=== PATIENT | male | born 1955 | race Caucasian/White ===

== ENCOUNTER 2017-08-16 05:58 | Inpatient (IN) ==
[2017-08-16] MEDS ORDERED: Dexamethasone Inj 20 MG/5 ML Vial IV.PUSH SCH (06:17)
[2017-08-16] MEDS ORDERED: Sodium Chlor 0.9% Inj 73.07 ML, Ropivacaine 0.5% PF Inj 24.63 ML, Ketorolac Inj 30 MG, ... P-ARTICULR SCH ×5 (06:30)
[2017-08-16] MEDS ORDERED: Chlorhexidine 4% Topical 120 APPLIC/120 ML Bottle TOPICAL SCH (06:30)
[2017-08-16] MEDS ORDERED: Metoprolol Tartrate 25 MG Tablet PO SCH (06:30)
[2017-08-16] MEDS ORDERED: Chlorhexidine Gluconate 2% 1 Pack (2 Cloths) TOPICAL SCH (06:30)
[2017-08-16] MEDS ORDERED: Sodium Chlor 0.9% Inj 500 ML IV.SIG SCH (07:00)
[2017-08-16] MEDS ORDERED: Vancomycin Inj 1 GM/200 ML PIGGYBACK IV.SIG SCH (07:00)
[2017-08-16] MEDS ORDERED: TRANEXAMIC ACID IV.SIG SCH (07:00)
[2017-08-16] MEDS ORDERED: ceFAZolin 2 GM Premix Inj 2 GM/50 ML PIGGYBACK IV.SIG SCH (07:00)
[2017-08-16] MEDS ORDERED: SODIUM CHLOR 0.9% IV.SIG SCH (07:00)
[2017-08-16] MEDS ORDERED: Post-op Orders (for Pharmacy) OTHER STA (07:05)
[2017-08-16] MEDS ORDERED: Bisacodyl 10 MG Supp RECTAL PRN (07:05)
[2017-08-16] MEDS ORDERED: Zolpidem Tartrate 5 MG Tablet PO PRN (07:05)
[2017-08-16] MEDS: Bupivacaine Liposomal PF 1.3% Inj 20 ML Vial ONE (09:06)
[2017-08-16] MEDS ORDERED: Tranexamic Acid Inj 3,000 MG in Sodium Chlor 0.9% Inj 100 ML IV.SIG SCH (09:21)
[2017-08-16] MEDS ORDERED: fentaNYL Citrate Inj 100 MCG/2 ML Ampul ONE (10:16)
[2017-08-16] MEDS ORDERED: *Meperidine Inj 25 MG/ML Vial PERIprocedural Use ONLY ONE (10:16)
--- NOTE | 2017-08-16 10:23 | MP ---
cc: Albert Pedroza MD DATE OF OPERATION: 08/16/2017 PREOPERATIVE DIAGNOSIS: Left knee osteoarthritis. POSTOPERATIVE DIAGNOSIS: Left knee osteoarthritis. PROCEDURE: Left total knee arthroplasty. SURGEON: Albert Pedroza MD HAND STRIPPER: YOLANDA Zamorano ANESTHESIA: General with an adductor canal block. ESTIMATED BLOOD LOSS: 50 mL. TOURNIQUET TIME: 23 minutes at 250 mmHg. COMPLICATIONS: None. IMPLANTS USED: DePuy Attune size 6 posterior stabilized femoral component, size 7 rotating platform tibial baseplate, size 6 mm polyethylene tibial insert, 38 patella. JUSTIFICATION: This patient is a 61-year-old male with a history of severe osteoarthritis involving the left knee. He has severe disabling pain with standing, walking, ambulation and weight-bearing activities, severe pain at rest. It does interfere with activities of daily living. He has failed greater than 3 months of nonoperative conservative treatment to include medication therapy, injections, ambulatory assistive aids, home exercise program, and activity modification, patient not overweight. X-rays of the left knee reveals severe osteoarthritis with [id number] joint space narrowing, subchondral sclerosis, subchondral cyst, osteophyte formation, varus deformity with subluxation. The patient was counseled as to the risks, benefits and alternatives to a total knee arthroplasty. The risks were discussed which include, but are not limited to anesthesia, bleeding, infection, damage to nerves and blood vessels, pain, stiffness, failure of hardware, blood clots, pulmonary embolism, and even . The patient's pain is severe. He favored the benefits over the risks. He did wish to proceed with surgery. PROCEDURE IN DETAIL: Written consent was obtained. The patient identified by name, taken to the operating room, placed supine on the operating room table. General anesthesia was administered, as well as 2 grams of IV Ancef and 1 gram IV vancomycin. A well-padded tourniquet was placed on the left leg. The left lower extremity was prepped and draped using isopropyl alcohol, Hibiclens solution and ChloraPrep solution. After a timeout was performed, an Esmarch bandage was used to exsanguinate the left lower extremity and tourniquet inflated to 250 mmHg. A longitudinal incision was made over the anterior aspect of the left knee. A medial parapatellar arthrotomy was performed. The patella was everted. A patellar resection guide was used to resect 9 mm of the patella. A size 38 mm guide was placed. Three drill holes were placed and a 38 mm trial fit well. Attention turned to the femur where an intramedullary guide was placed and the distal femoral guide was set to remove 10 mm of distal femur, 5 degrees off the anatomic valgus axis alignment. An oscillating saw was used to perform the distal femoral cut. Attention was turned to the tibia where an extramedullary tibial guide was set to remove 5 mm off the lowest portion of the medial tibial plateau. The tibial guide was pinned in place and a tibial cut was performed. A 5 mm spacer block showed full extension. Attention was turned back to the tibia where the AP sizer block measured a size 6. The anterior reference 3-degree external rotation guide was used to pin a size [address] The anterior, posterior and chamfer cuts were performed. A size 6 PCL box cut was pinned in place the PCL was box cut with an oscillating saw. The medial and lateral meniscus remnants were removed, as well as bone and soft tissue debris from the posterior portion of the knee. A size 7 tibia baseplate was pinned in place and the tibia was drilled and punched. Trial components were evaluated and final components cemented in place. With the current components, the leg could achieve full extension to 0 degrees, flexion to 140 with no evidence of tibial liftoff. Varus valgus balance appeared appropriate symmetric and the patella was noted to track centrally. The tourniquet was deflated. Bovie cautery was used for hemostasis. The surgical wound was thoroughly irrigated with sterile pulse lavage antibiotic impregnated solution. The arthrotomy incision was closed with #1 Vicryl suture, subcutaneous layer 2-0 Vicryl suture and skin was closed with Dermabond. Sterile dressing was applied. The patient tolerated the procedure well with no intraoperative complications noted. Sarbjit Isaac PA-C was present during the entire procedure to include patient positioning and the procedure itself. The medical necessity of a physician psychological assistant was indicated in this case due to the complexity of the procedure. He assisted with appropriate manipulation of the bone and also implantation of the prosthetic replacement. MD HEATHER Peterson/JULES , 09:57 AM , 10:21 AM
--- NOTE | 2017-08-16 10:35 | P.CONIM ---
<Elli Hernandez - Last Filed: 08/16/17 11:32> History of Present Illness Consult date: 08/16/17 Requesting Physician: Albert Pedroza Reason for Consult: Postoperative medical management Primary Care Provider: Shireen Ballard MD Family Provider: Shireen Ballard MD History of Present Illness: This a 61-year-old male patient with past medical history which includes hypertension, CAD status post stent to the LAD and left circumflex 2006, Bolivar 's esophagitis, sleep apnea and does wear CPAP at home and OA of the left knee. Patient presented to [facility] today 08/16/2017 for left total knee arthroplasty with Dr. Pedroza. We have been consulted for postoperative medical management. Patient seen and postoperative recovery complains of left knee pain. Patient denies shortness of breath or chest pain nausea vomiting diarrhea constipation fevers or chills. PMH: Hypertension CAD status post stent to the LAD and left circumflex 2006 Bolivar's esophagitis Osteoarthritis left knee PSxH: Cardiac catheterization with stent placed to the LAD and left circumflex 2006 Tonsillectomy Uvuloplasty FMH: Anxiety Alcoholism Social history: Drinks approximately 3-4 beers per day Denies tobacco use Denies illicit drug use Review of Systems All other systems reviewed negative except as stated in HPI [facility] - History History Provided By: Patient, Significant Other - Medical History Medical History: Medical History (Last Updated 08/06/17 @ 16:01 by Chandni Jauregui RN) Arthritis Back pain Hypertension Kidney stones Obstructive sleep apnea on CPAP - Surgical History Surgical History: Surgical History (Last Updated 08/06/17 @ 16:01 by Chandni Jauregui RN) H/O lithotripsy H/O sinus surgery Hx of cardiac cath Stented coronary artery - Tobacco History Second Hand Smoke Exposure: No Tobacco Use In Past 30 Days: No Smoking Status: Former smoker Tobacco Type: Cigarettes - Alcohol History How Often Do You Have a Drink Containing Alcohol: 4 or more times a week - Substance Use History Substance History: No History of Abuse Medications and Allergies Allergies Allergy/AdvReac Type Severity Reaction Status Date / Time No Known Allergies Allergy Unverified 08/06/17 16:08 Home Medications Medication Instructions Recorded Confirmed Type aspirin [Aspir-81] 81 mg PO DAILY 08/06/17 08/06/17 History clopidogrel [Plavix] 75 mg PO DAILY 08/06/17 08/06/17 History fenofibrate 1,145 mg PO DAILY 08/06/17 08/06/17 History fosinopril 20 mg PO BID 08/06/17 08/16/17 History ab-[id number]-[id number] I-[id number] 1 cap PO DAILY 08/06/17 08/06/17 History [Daily Multivitamin] omega-3 fatty acids-fish oil [Fish 1 cap PO DAILY 08/06/17 08/06/17 History Oil] pantoprazole [Protonix] 40 mg PO DAILY 08/06/17 08/16/17 History prazosin 4 mg PO BID 08/06/17 08/16/17 History rosuvastatin [Crestor] 40 mg PO HS 08/06/17 08/06/17 History verapamil 180 mg PO QAM 08/06/17 08/16/17 History hydrochlorothiazide 12.5 mg PO DAILY 08/10/17 08/16/17 History Active Medications: Active Medications Hydrocodone Bitart/Acetaminophen ([place] 7.5/325) 1 tab PO Q4H PRN PRN Reason: PAIN LESS THAN 5 ON SCALE Hydrocodone Bitart/Acetaminophen ([place] 7.5/325) 2 tab PO Q6H PRN PRN Reason: PAIN SCALE 5 TO 10 Al Hydroxide/Mg Hydroxide (Milk Of Salma Amaral) 30 ml PO BID PRN PRN Reason: Mild Constipation Aspirin (Aspirin Chew) 81 mg PO BID [facility] Bisacodyl (Dulcolax Supp) 10 mg RECTAL DAILY PRN PRN Reason: SEVERE CONSITIPATION Chlorhexidine Gluconate (Hibiclens 4% Topical) 1 applicatio TOPICAL ONCE [facility] Stop: 08/20/17 06:29 Chlorhexidine Gluconate (Chlorhexidine 2% Cloth) 3 pack [facility] Stop: 08/19/17 06:16 Last Admin: 08/16/17 08:36 Dose: 3 pack Sodium Chloride 73.07 ml/Ropivacaine 24.63 ml/Ketorolac Tromethamine 30 mg/ Epinephrine HCl 0.5 mg/cloNIDine PF Inj 80 mcg 0 ml P-ARTICULR ONCE [facility] Stop: 08/16/17 15:00 Dexamethasone Sodium Phosphate (Decadron Inj) 10 mg IV.PUSH UNSCH X1 [facility] Stop: 08/16/17 22:00 Last Admin: 08/16/17 08:37 Dose: 10 mg Diphenhydramine HCl (Benadryl) 25 mg PO Q6H PRN PRN Reason: ITCHING Hydromorphone HCl (Dilaudid Pf Inj) 1 mg IV.PUSH Q3H PRN PRN Reason: BREAKTHROUGH PAIN Lactated Ringer's (Lr 1000 Ml Inj) 1,000 mls @ 30 mls/hr IV.SIG .Q24H [facility] Stop: 08/19/17 06:16 Last Admin: 08/16/17 08:32 Dose: 30 mls/hr Sodium Chloride (Ns Inj) 500 mls @ 30 mls/hr IV.SIG .Q10H [facility] Stop: 08/19/17 06:16 Tranexamic Acid 3,000 mg/ (Sodium Chloride) 130 mls @ 200 mls/hr IV.SIG ONCE [facility] Stop: 08/16/17 15:00 Vancomycin/Sodium Chloride (Vancomycin Inj) 1 gm in 200 mls @ 200 mls/hr IV.SIG [facility] [employer] [facility] Stop: 08/20/17 06:59 Last Admin: 08/16/17 08:34 Dose: 200 mls/hr Cefazolin Sodium/Dextrose (Ancef 2 Gm Premix Inj) 2 gm in 50 mls @ 100 mls/hr IV.SIG [facility] [employer] [facility] Stop: 08/20/17 06:59 Tranexamic Acid 1,215 mg/ (Sodium Chloride) 112.15 mls @ 200 mls/hr IV.SIG ONCE [facility] Stop: 08/16/17 15:00 Cefazolin Sodium/Dextrose (Ancef 2 Gm Premix Inj) 2 gm in 50 mls @ 100 mls/hr IV.SIG Q6H [facility] Stop: 08/16/17 20:29 Lactated Ringer's (Lr 1000 Ml Inj) 1,000 mls @ 80 mls/hr IV.CONT .[id number] [facility] Lactulose (Lactulose Liq) 30 ml PO DAILY PRN PRN Reason: SEVERE CONSITIPATION Metoprolol Tartrate (Lopressor) 25 mg PO [facility] Stop: 08/19/17 06:16 Miscellaneous Information (Misc Post-Op Orders (For Pharmacy)) 0 each OTHER STAT STA Stop: 08/16/17 07:06 Multivitamins/Minerals (Theragran-M) 1 tab PO BID [facility] Stop: 10/15/17 08:59 Non-Formulary Medication (Fosinopril [Fosinopril]) 20 mg PO BID [facility] Non-Formulary Medication (Hydrochlorothiazide [Hydrochlorothiazide]) 12.5 mg PO DAILY [facility] Non-Formulary Medication (Fenofibrate [Fenofibrate]) 1,145 mg PO DAILY [facility] Non-Formulary Medication (Rosuvastatin) 40 mg PO HS [facility] Ondansetron HCl (Zofran Inj) 4 mg IV.PUSH Q6H PRN PRN Reason: NAUSEA OR VOMITING Pantoprazole Sodium (Protonix) 40 mg PO DAILY [facility] Povidone Iodine (Betadine 5% Antisepsis Kit) 1 applicatio EACH [facility] Stop: 08/19/17 06:16 Povidone Iodine (Betadine 7.5% Scrub) 1 applicatio TOPICAL ONCE [facility] Stop: 08/20/17 06:59 Last Admin: 08/16/17 07:00 Dose: 1 applicatio Prazosin HCl (Minipress) 4 mg PO BID [facility] Senna/Docusate Sodium (Eloisa-Colace) 1 tab PO BID [facility] Sennosides (Senokot) 17.2 mg PO BID PRN PRN Reason: Moderate Constipation Sodium Chloride (Ns Flush) 2 ml IV.FLUSH PRN PRN PRN Reason: FLUSH AFTER USING IV ACCESS Sodium Chloride (Ns Flush) 2 ml IV.FLUSH BID [facility] Verapamil HCl (Isoptin Sr) 180 mg PO QAM [facility] Exam Vital signs: Vital Signs 08/16/17 07:01 08/16/17 07:36 Temperature 98.7 F Pulse Rate 80 66 Respiratory Rate 20 Blood Pressure 165/85 H Pulse Oximetry 100 Intake & Output 08/15/17 08/16/17 08/16/17 18:59 06:59 18:59 Weight 80.9 kg Other: Weight On Admission 80.9 kg Narrative: GENERAL: This is a well-nourished, well-developed patient, in no apparent distress. SKIN: Postoperative dressing and immobility splint left knee dry and intact CARDIOVASCULAR: Regular rate and rhythm RESPIRATORY: Clear to auscultation. Breath sounds equal bilaterally. GASTROINTESTINAL: Abdomen soft, non-tender, nondistended. MUSCULOSKELETAL: Extremities without clubbing, cyanosis, or edema. NEURO: Alert & Oriented x4 to person, place, time, situation. Moves all ext x4 Results - Labs Labs: Laboratory Results - last 24 hr 08/16/17 06:35 Blood Type O Positive Blood Type Recheck Required Antibody Screen Negative Assessment and Plan - Assessment (1) Osteoarthritis of left knee Code(s): M17.12 - Unilateral primary osteoarthritis, left knee Status: Acute Plan: This a 61-year-old male patient with past medical history which includes hypertension, CAD status post stent to the LAD and left circumflex 2006, Bolivar 's esophagitis, sleep apnea and does wear CPAP at home and OA of the left knee. Patient presented to [facility] today 08/16/2017 for left total knee arthroplasty with Dr. Pedroza. We have been consulted for postoperative medical management. Patient seen and postoperative recovery complains of left knee pain. Patient denies shortness of breath or chest pain nausea vomiting diarrhea constipation fevers or chills. Osteoarthritis left knee Patient status post left total knee arthroplasty with Dr. Pedroza 08/16/2017 IV and p.o. pain medication as needed Hypertension Continue patient's verapamil 180 mg daily, fosinopril 20 mg p.o. daily, Minipress 2 mg CAD status post stent to the LAD and left circumflex 2006 Recommend continuing patient's home Plavix and aspirin -once okay with orthopedic surgery Also continue patient's home Crestor 40 mg daily and TriCor 145 mg daily Bolivar's esophagitis Continue patient's home Protonix 40 mg daily DVT prophylaxis per orthopedic surgery <Tom Fonseca - Last Filed: 08/16/17 12:32> History of Present Illness Primary Care Provider: Shireen Ballard MD Family Provider: Shireen Ballard MD [facility] - Medical History Medical History: Medical History (Last Updated 08/06/17 @ 16:01 by Chandni Jauregui, SU) Arthritis Back pain Hypertension Kidney stones Obstructive sleep apnea on CPAP - Surgical History Surgical History: Surgical History (Last Updated 08/06/17 @ 16:01 by Chandni Jauregui RN) H/O lithotripsy H/O sinus surgery Hx of cardiac cath Stented coronary artery Medications and Allergies Active Medications: Active Medications Hydrocodone Bitart/Acetaminophen ([place] 7.5/325) 1 tab PO Q4H PRN PRN Reason: PAIN LESS THAN 5 ON SCALE Hydrocodone Bitart/Acetaminophen ([place] 7.5/325) 2 tab PO Q6H PRN PRN Reason: PAIN SCALE 5 TO 10 Al Hydroxide/Mg Hydroxide (Milk Of Salma Amaral) 30 ml PO BID PRN PRN Reason: Mild Constipation Aspirin (Aspirin Chew) 81 mg PO BID [facility] Atorvastatin Calcium (Lipitor) 80 mg PO HS [facility] Bisacodyl (Dulcolax Supp) 10 mg RECTAL DAILY PRN PRN Reason: SEVERE CONSITIPATION Chlorhexidine Gluconate (Hibiclens 4% Topical) 1 applicatio TOPICAL ONCE [facility] Stop: 08/20/17 06:29 Chlorhexidine Gluconate (Chlorhexidine 2% Cloth) 3 pack [facility] Stop: 08/19/17 06:16 Last Admin: 08/16/17 08:36 Dose: 3 pack Sodium Chloride 73.07 ml/Ropivacaine 24.63 ml/Ketorolac Tromethamine 30 mg/ Epinephrine HCl 0.5 mg/cloNIDine PF Inj 80 mcg 0 ml P-ARTICULR ONCE [facility] Stop: 08/16/17 15:00 Last Admin: 08/16/17 09:06 Dose: 73.07 bag Dexamethasone Sodium Phosphate (Decadron Inj) 10 mg IV.PUSH UNSCH X1 [facility] Stop: 08/16/17 22:00 Last Admin: 08/16/17 08:37 Dose: 10 mg Diphenhydramine HCl (Benadryl) 25 mg PO Q6H PRN PRN Reason: ITCHING Fenofibrate (Tricor) 145 mg PO DAILY [facility] Hydrochlorothiazide (Microzide) 12.5 mg PO DAILY [facility] Hydromorphone HCl (Dilaudid Pf Inj) 1 mg IV.PUSH Q3H PRN PRN Reason: BREAKTHROUGH PAIN Lactated Ringer's (Lr 1000 Ml Inj) 1,000 mls @ 30 mls/hr IV.SIG .Q24H [facility] Stop: 08/19/17 06:16 Last Admin: 08/16/17 08:32 Dose: 30 mls/hr Sodium Chloride (Ns Inj) 500 mls @ 30 mls/hr IV.SIG .Q10H [facility] Stop: 08/19/17 06:16 Tranexamic Acid 3,000 mg/ (Sodium Chloride) 130 mls @ 200 mls/hr IV.SIG ONCE [facility] Stop: 08/16/17 15:00 Last Admin: 08/16/17 09:06 Dose: 200 mls/hr Vancomycin/Sodium Chloride (Vancomycin Inj) 1 gm in 200 mls @ 200 mls/hr IV.SIG [facility] Stop: 08/20/17 06:59 Last Admin: 08/16/17 08:34 Dose: 200 mls/hr Cefazolin Sodium/Dextrose (Ancef 2 Gm Premix Inj) 2 gm in 50 mls @ 100 mls/hr IV.SIG [facility] Stop: 08/20/17 06:59 Tranexamic Acid 1,215 mg/ (Sodium Chloride) 112.15 mls @ 200 mls/hr IV.SIG ONCE [facility] Stop: 08/16/17 15:00 Cefazolin Sodium/Dextrose (Ancef 2 Gm Premix Inj) 2 gm in 50 mls @ 100 mls/hr IV.SIG Q6H [facility] Stop: 08/17/17 02:29 Lactated Ringer's (Lr 1000 Ml Inj) 1,000 mls @ 80 mls/hr IV.CONT .[id number] [facility] Last Admin: 08/16/17 10:57 Dose: 80 mls/hr Lactulose (Lactulose Liq) 30 ml PO DAILY PRN PRN Reason: SEVERE CONSITIPATION Lisinopril (Prinivil) 20 mg PO BID [facility] Metoprolol Tartrate (Lopressor) 25 mg PO [facility] Stop: 08/19/17 06:16 Multivitamins/Minerals (Theragran-M) 1 tab PO BID [facility] Stop: 10/15/17 08:59 Ondansetron HCl (Zofran Odt) 4 mg PO Q6H PRN PRN Reason: NAUSEA OR VOMITING Pantoprazole Sodium (Protonix) 40 mg PO DAILY [facility] Povidone Iodine (Betadine 5% Antisepsis Kit) 1 applicatio EACH [facility] Stop: 08/19/17 06:16 Povidone Iodine (Betadine 7.5% Scrub) 1 applicatio TOPICAL ONCE [facility] Stop: 08/20/17 06:59 Last Admin: 08/16/17 07:00 Dose: 1 applicatio Prazosin HCl (Minipress) 4 mg PO BID [facility] Senna/Docusate Sodium (Eloisa-Colace) 1 tab PO BID [facility] Sennosides (Senokot) 17.2 mg PO BID PRN PRN Reason: Moderate Constipation Sodium Chloride (Ns Flush) 2 ml IV.FLUSH PRN PRN PRN Reason: FLUSH AFTER USING IV ACCESS Sodium Chloride (Ns Flush) 2 ml IV.FLUSH BID [facility] Verapamil HCl (Isoptin Sr) 180 mg PO DAILY [facility] Exam Vital signs: Vital Signs 08/16/17 07:01 08/16/17 07:36 08/16/17 10:12 Temperature 98.7 F 97.6 F Pulse Rate 80 66 94 H Respiratory Rate 20 18 Blood Pressure 165/85 H 121/78 Pulse Oximetry 100 100 Intake & Output 08/15/17 08/16/17 08/16/17 18:59 06:59 18:59 Intake Total 1500 / 1500 Output Total 100 / 100 Balance 1400 / 1400 Weight 80.9 kg Intake: Anesthesia Amount 1500 / 1500 Output: Estimated Blood Loss 100 / 100 Other: Weight On Admission 80.9 kg Results - Labs Labs: Laboratory Results - last 24 hr 08/16/17 06:35 Blood Type O Positive Blood Type Recheck Required Antibody Screen Negative - Imaging Impressions Knee X-Ray 08/16/17 06:57 CONCLUSION: Status post total knee arthroplasty. Morgan Gutierrez MD FACR Assessment and Plan - Assessment (1) Osteoarthritis of left knee Code(s): M17.12 - Unilateral primary osteoarthritis, left knee Status: Acute Plan: The exam, history, and the medical decision-making described in the above note were completed with the assistance of the mid-level provider. I reviewed and agree with the findings presented. I attest that I had a [id number] encounter with the patient on the same day, and personally performed and documented my assessment and findings in the medical record.
[2017-08-16] MEDS ORDERED: *morphine SULFATE 4 MG/ML PERIprocedure ONLY ONE ×3 (10:40→11:00)
[2017-08-16] MEDS ORDERED: Lidocaine PF 1% Inj 5 ML Syringe INFILTRATN ONE (11:03)
--- NOTE | 2017-08-16 11:09 | XR ---
EXAM DATE: 08/16/2017 10:53 AM EDT AGE/SEX: 61 years / Male INDICATIONS: Post-op left knee. CLINICAL DATA: This is the patient's initial encounter. Patient reports that signs and symptoms have been present for 1 day and indicates a pain score of Nonresponsive. MEDICAL/SURGICAL HISTORY: Hypertension. Coronary artery stent. Total knee replacement, left. COMPARISON: No prior exams available for comparison. FINDINGS: AP and lateral views of the knee following arthroplasty reveals a prosthesis in anatomic alignment. F racture is not appreciated. Minimal air is present within the joint. CONCLUSION: Status post total knee arthroplasty. Morgan Gutierrez MD FACR Electronically signed by: Morgan Gutierrez MD 08/16/2017 11:08 AM EDT
[2017-08-16] MEDS: ceFAZolin 2 GM Premix Inj 2 GM/50 ML PIGGYBACK IV.SIG SCH ×2 (13:55→20:45)
[2017-08-16] MEDS ORDERED: HYDROmorphone PF Inj 2 MG/ML Vial IV.PUSH ONE ×3 (15:30→15:45)
[2017-08-16] MEDS: Fenofibrate 145 MG Tablet PO SCH ×2 (16:12→22:02)
[2017-08-16] MEDS: Lisinopril 20 MG Tablet PO SCH (21:47)
[2017-08-16] MEDS: Senna/Docusate Sodium 8.6/50 MG Tablet PO SCH (21:47)
[2017-08-16] MEDS: Multivitamin/Minerals Therapeutic Tablet PO SCH (21:47)
[2017-08-16] MEDS: HYDROmorphone PF Inj 2 MG/ML Vial IV.PUSH PRN (23:48)
[2017-08-17] MEDS: Senna/Docusate Sodium 8.6/50 MG Tablet PO SCH ×3 (00:50→21:27)
[2017-08-17] MEDS: Multivitamin/Minerals Therapeutic Tablet PO SCH ×3 (00:51→21:27)
--- NOTE | 2017-08-17 08:03 | P.PNOP ---
Subjective Interval history: painful yesterday, better this am. Physical Exam Vital signs: Vital Signs 08/16/17 10:12 08/16/17 10:30 08/16/17 10:45 Temperature 97.6 F Pulse Rate 94 H 91 H 88 Respiratory Rate 18 18 16 Blood Pressure 121/78 132/77 139/75 Pulse Oximetry 100 100 100 08/16/17 11:00 08/16/17 11:15 08/16/17 12:15 Temperature 97.9 F 97.9 F 97.9 F Pulse Rate 87 87 88 Respiratory Rate 16 16 Blood Pressure 138/67 136/66 144/70 H Pulse Oximetry 100 100 08/16/17 13:15 08/16/17 14:15 08/16/17 16:15 Temperature 97.9 F 97.9 F Pulse Rate 86 76 Respiratory Rate Blood Pressure 156/71 H 152/72 H Pulse Oximetry 100 08/16/17 16:40 08/16/17 16:45 08/16/17 19:55 Temperature 97.9 F 97.6 F 97.9 F Pulse Rate 76 82 92 H Respiratory Rate 18 18 18 Blood Pressure 141/66 H 146/70 H 156/71 H Pulse Oximetry 100 97 97 08/16/17 23:57 08/17/17 04:13 Temperature 97.8 F 97.7 F Pulse Rate 78 81 Respiratory Rate 18 18 Blood Pressure 166/78 H 163/77 H Pulse Oximetry 97 97 Intake & Output 08/16/17 08/17/17 08/17/17 18:59 06:59 18:59 Intake Total 1912.15 / 1912.15 Output Total 100 / 100 Balance 1812.15 / 1812.15 Intake: IV 1412.15 / 1412.15 LR 1000 mL Inj 1,000 ML @ 30 1000 / 1000 mls/hr IV.SIG .Q24H [facility] Rx#: [id number] Cyklokapron Inj 1,215 MG In NS 112.15 / 112.15 Inj 100 ML @ 200 mls/hr IV.SIG ONCE [facility] Rx#:[id number] Vancomycin Inj 1 gm In 200 ml @ 200 / 200 200 mls/hr IV.SIG BEDSPREAD CUTTER [facility] Rx#:[id number] Ancef 2 GM Premix Inj 2 gm In 100 / 100 50 ml @ 100 mls/hr IV.SIG Q6H [facility] Rx#:[id number] Anesthesia Amount 500 / 500 Output: Estimated Blood Loss 100 / 100 Other: Date of Last Bowel Movement 08/16/17 Narrative: in bed, nad dressing c/d/i neg avani nvi able to do straight leg raise Results - Imaging Impressions Knee X-Ray 08/16/17 06:57 CONCLUSION: Status post total knee arthroplasty. Morgan Gutierrez MD FACR Assessment and Plan - Ortho Post Op Day # 1 - Assessment and Plan s/p L TKA wbat ok to maintain dressing unless saturated asa 81mg bid UA ordered d/c planning home with [facility] and pt anticipate today or tomorrow pending pain control f/up dr. echeverria 2 weeks
--- NOTE | 2017-08-17 08:08 | P.DCO ---
- Physical Therapy Physical Therapy: Gait training, Safety evaluation Knee: Total knee, Protocol: Left, Full weight bearing Left Lower Extremity Weight Bearing: Weight bearing as tolerated - Nursing RN: 3 days/week x 2 weeks Nursing: Dressing changes Dressing changes: Daily dressing change - Certification Need for Home Health services: I have seen patient Juliano Goldman on 08/17/17. My clinical findings support the need for the requested home health care services because: Need for Home Health Services: Limited ability to care for self, High risk of falls Homebound Certification: I certify that my clinical findings support that this patient is homebound because: Homebound Certification: Post-op weakness, Unsteady gait/balance
[2017-08-17] MEDS: Lisinopril 20 MG Tablet PO SCH ×2 (08:28→21:27)
[2017-08-17] MEDS: Fenofibrate 145 MG Tablet PO SCH (08:29)
[2017-08-17] MEDS: ceFAZolin 2 GM Premix Inj 2 GM/50 ML PIGGYBACK IV.SIG SCH (09:31)
[2017-08-17 09:48] LABS: Hematocrit 36.2 % (39.0-51.0); Hemoglobin 12.3 gm/dL (13.0-17.0)
[2017-08-17 10:17] LABS: Calcium 9.4 mg/dL (8.5-10.1); Carbon Dioxide 23.9 meq/L (21.0-32.0); Potassium 3.7 meq/L (3.5-5.1)
[2017-08-17 12:25] LABS: Bilirubin,Urine Negative (Negative); Clarity,Urine Clear (Clear); Color,Urine Yellow (Yellw/Straw); Glucose,Urine (UA) Negative (Negative); Leukocyte Esterase,Urine Negative (Negative); Mucus,Urine Few /lpf (Occasional); Nitrite,Urine Negative (Negative)
[2017-08-17] MEDS: HYDROmorphone PF Inj 2 MG/ML Vial IV.PUSH PRN (15:13)
[2017-08-18] MEDS: Multivitamin/Minerals Therapeutic Tablet PO SCH (09:30)
[2017-08-18] MEDS: Fenofibrate 145 MG Tablet PO SCH (09:30)
[2017-08-18] MEDS: Senna/Docusate Sodium 8.6/50 MG Tablet PO SCH (09:30)
[2017-08-18] MEDS: Lisinopril 20 MG Tablet PO SCH (09:30)
--- NOTE | 2017-08-18 10:27 | P.PNOP ---
Subjective Interval history: feeling better. Physical Exam Vital signs: Vital Signs 08/17/17 12:00 08/17/17 15:43 08/17/17 16:00 Temperature 97.6 F 97.6 F Pulse Rate 72 54 L Respiratory Rate 18 18 20 Blood Pressure 123/64 160/79 H Pulse Oximetry 98 99 08/17/17 20:00 08/18/17 00:00 08/18/17 01:22 Temperature 98.1 F 97.6 F Pulse Rate 72 88 Respiratory Rate 17 17 18 Blood Pressure 170/74 H 156/79 H Pulse Oximetry 98 97 Intake & Output 08/17/17 08/18/17 08/18/17 18:59 06:59 18:59 Intake Total 620 / 620 Output Total 625 / 625 Balance -5 / -5 Weight 80.9 kg Intake: Oral 620 / 620 Output: Urine 625 / 625 Other: # Voids 4 Date of Last Bowel Movement 08/16/17 08/15/17 Narrative: in bed, nad dressing c/d/i neg avani browni Results - Labs CBC & Chem 7: 08/17/17 08:25 08/17/17 08:25 Laboratory Results - last 24 hr 08/17/17 09:20 Urine Color Yellow Urine Clarity Clear Urine pH 6.0 Ur Specific [place] 1.010 Urine Protein Negative Urine Glucose (UA) Negative Urine Ketones Negative Urine Occult Blood Negative Urine Nitrate Negative Urine Bilirubin Negative Urine Urobilinogen Less than 2 Ur Leukocyte Esterase Negative Urine RBC Less than 1 Urine WBC Less than 1 Urine Mucus Few H Micro UA Comment Culture not ind Urine Culture Comments Culture not ind Assessment and Plan - Ortho Post Op Day # 2 - Assessment and Plan s/p L TKA wbat ok to maintain dressing unless saturated asa 81mg bid UA - neg d/c planning home with [facility] and pt cleared today f/up dr. echeverria 2 weeks
--- NOTE | 2017-09-07 09:56 | MD ---
cc: Albert Pedroza MD DATE OF DISCHARGE: 08/18/2017 ADMITTING DIAGNOSIS: Severe degenerative osteoarthritis, left knee. DISCHARGE DIAGNOSIS: Severe degenerative osteoarthritis, left knee. HISTORY OF PRESENT ILLNESS: The patient is a 61-year-old male patient of Dr[facility]. He has currently been treated for bilateral knee pain, left greater than right. The patient states he is having progressive and severe discomfort in the left knee with weightbearing activities. He has no alleviating factors, although in the past he has tried medications, bracing, assistive devices, physical therapy, home exercise program and multiple injections without relief of symptoms. He does have x-ray evidence of severe degenerative osteoarthritis of the left knee. While in the office, the patient was counseled on his diagnosis and treatment options. Risks, benefits, and indications all were discussed. The patient did elect to proceed with surgical intervention to include a left total knee arthroplasty. DATE OF SURGERY: On 08/16/2017, left total knee arthroplasty. POSTOPERATIVE COURSE: After surgery, the patient was admitted to [facility] where he received appropriate medical management, pain control, DVT prophylaxis, as well as physical therapy. DISCHARGE PLAN: Once being discharged from the hospital, the patient was cleared to go home where he will receive home health care and home physical therapy. He is in stable condition. He may weight bear as tolerated. He has been instructed on wound care management. He has been provided prescriptions for pain control and DVT prophylaxis medication. He has also been provided a followup appointment approximately 2 weeks from date of surgery. The patient has asked appropriate questions, which have been answered. The patient cleared for discharge. Dictated by YOLANDA Pickens Albert Pedroza MD JWM/KD , 10:29 AM , 10:39 AM
== END 2017-08-18 11:04 | disposition home health service (06) ==
LOC: HSDI 05:58 → N06 17:04
PROVIDERS: ADMIT Orthopaedic Surgery Sports Medicine; ATTEND Orthopaedic Surgery Sports Medicine